=== PATIENT | male | born 1965 | race Caucasian/White ===

== ENCOUNTER → 2019-12-06 | Outpatient (CLI) | payer BC | LOC: M LABSMTC 13:20 | PROVIDERS: ATTEND Family Medicine | DX: Z03.818 Encounter for observation for suspected exposure to other biological agents ruled out (principal); Z11.59 Encounter for screening for other viral diseases | CPT/HCPCS: C9803; U0003 ==

== ENCOUNTER → 2020-09-23 | Outpatient (CLI) | payer BC | LOC: M LABSMTC 12:58 | PROVIDERS: ATTEND Pediatrics | DX: Z20.828 Contact with and (suspected) exposure to other viral communicable diseases (principal) | CPT/HCPCS: C9803; U0003 ==

== ENCOUNTER 2024-01-28 21:22 | Emergency (ER) | payer BC ==
[~2024-01-28] VITALS: Ht 172.7 cm; Wt 75.0 kg
[2024-01-28 21:23] VITALS: TEMP 96.2
[2024-01-28 21:53] LABS: BASO # 0.1 10^3/uL (0.0-0.2); BASO % 0.6 % (0.0-1.0); EOS # 0.2 10^3/uL (0.0-0.5); EOS % 1.9 % (0.0-3.0); HEMATOCRIT 42.9 % (42.0-52.0); HEMOGLOBIN 15.1 g/dl (13.5-17.5); LYMPH # 2.7 10^3/uL (1.5-5.0); LYMPH % 31.8 % (24.0-44.0); MEAN CORPUSCULAR HEMOGLOBIN 31.8 pg (27.0-33.0); MEAN CORPUSCULAR HGB CONC 35.2 g/dl (32.0-36.5); MEAN CORPUSCULAR VOLUME 90.3 fl (80.0-96.0); MONO # 0.8 10^3/uL (0.0-0.8); MONO % 8.9 % (2.0-8.0); NEUTROPHILS # 4.9 10^3/uL (1.5-8.5); NEUTROPHILS % 56.6 % (36.0-66.0); PLATELET COUNT, AUTOMATED 195 10^3/uL (150-450); RED BLOOD COUNT 4.75 10^6/uL (4.30-6.10); WHITE BLOOD COUNT 8.6 10^3/uL (4.0-10.0)
[2024-01-28 22:10] LABS: PROTHROMBIN TIME 12.9 SECONDS (12.5-14.5)
[2024-01-28] MEDS: NS 1,000 ML IV ONE (22:45)
[2024-01-28 22:57] LABS: LIPASE 56 U/L (12-53)
[2024-01-28 23:00] LABS: ALBUMIN 4.1 G/DL (3.2-5.2); ALKALINE PHOSPHATASE 73 U/L (46-116); ALT/SGPT 30 U/L (7.0-40); AST/SGOT 20 U/L (<34); BILIRUBIN,DIRECT < 0.1 MG/DL (<0.4); BILIRUBIN,TOTAL 0.3 MG/DL (0.3-1.2); CK-MB VALUE MASS < 1.0 NG/ML (<3.6); CPK CREATINE PHOSPHOKINASE 93 U/L (46-171); MB/CK RELATIVE INDEX 1.07 (< OR =4); TOTAL PROTEIN 6.2 G/DL (5.7-8.2)
[2024-01-28 23:34] LABS: BLOOD UREA NITROGEN 24 MG/DL (9-23); CALCIUM LEVEL 9.2 MG/DL (8.5-10.1); CARBON DIOXIDE LEVEL 31 MMOL/L (20-31); CHLORIDE LEVEL 106 MMOL/L (98-107); CK-MB VALUE MASS < 1.0 NG/ML (<3.6); GLOMERULAR FILTRATION RATE > 60.0 (>56); GLUCOSE, FASTING 104 MG/DL (60-100); POTASSIUM SERUM 4.1 MMOL/L (3.5-5.1); SODIUM LEVEL 141 MMOL/L (136-145)
[2024-01-28 23:36] LABS: CPK CREATINE PHOSPHOKINASE 87 U/L (46-171); MB/CK RELATIVE INDEX 1.14 (< OR =4)
[2024-01-28] MEDS ORDERED: ISOVUE-370 76% 100ML VIAL As Ordered ONE (23:51)
[2024-01-29 01:15] VITALS: BP 113/61
[2024-01-29 01:22] VITALS: O2SAT 97
== END 2024-01-29 01:48 | disposition home or self-care (01) ==
LOC: M ED 21:22
DX: R07.9 Chest pain, unspecified (principal); F10.10 Alcohol abuse, uncomplicated
CPT/HCPCS: 71045; 71275; 72125; 72128; 80048; 80076; 82550; 82553; 83690; 84484; 85025; 85610; 93005; 93041; 94760; 96360; 96361; 99285; Q9967

== ENCOUNTER → 2024-02-01 | Outpatient (REF) | payer BC ==
[2024-02-07 00:33] LABS: BORRELIA SPECIES DNA NOT DETECTED (NOT DETECT)
[2024-02-07 01:48] LABS: Anaplasma phagocytophilum NOT DETECTED (NOT DETECT); Babesia microti NOT DETECTED (NOT DETECT); Ehrlichia chaffeensis NOT DETECTED (NOT DETECT)
== END ==
LOC: M LAB REF 16:27
PROVIDERS: ATTEND Physician Assistant Medical
DX: R07.89 Other chest pain (principal); R20.2 Paresthesia of skin

== ENCOUNTER → 2024-06-06 | Outpatient (CLI) | payer BC | LOC: M WUC 11:53 | PROVIDERS: ATTEND Internal Medicine | DX: M54.2 Cervicalgia (principal) ==